=== PATIENT | female | born 1990 | race Caucasian/White ===

== ENCOUNTER → 2019-11-28 08:17 | Outpatient (CLI) | payer OTHER, SELFPAY ==
[2019-12-04 07:16] LABS: C.trachomatis RNA NOT DETECTED; N.gonorrhoeae RNA NOT DETECTED
== END ==
PROVIDERS: Family Provider Nurse Practitioner; PCP Nurse Practitioner; Visit Provider Obstetrics & Gynecology
DX: Z11.3 Encounter for screening for infections with a predominantly sexual mode of transmission (principal)
CPT/HCPCS: 87491; 87591

== ENCOUNTER → 2019-11-28 09:03 | Outpatient (CLI) | payer OTHER, SELFPAY ==
[2019-11-28 09:54] LABS: Add Manual Diff / Slide Review NO; Basophils Absolute Auto 0 /uL (0-100); Basophils Percent Auto 0.2 % (0-2); Eosinophils Absolute Auto 0 /uL (0-450); Eosinophils Percent Auto 0.6 % (2-4); Hemoglobin 13.2 g/dL (12.0-16.0); Lymphocytes Absolute Auto 1400 /uL (1100-4500); Lymphocytes Percent Auto 20.2 % (25-40); Mean Corpuscular HGB Conc 33.9 % (30-36); Mean Corpuscular Hemoglobin 28.7 PG (26-34); Mean Corpuscular Volume 84.5 fL (80-100); Monocytes Absolute Auto 300 /uL (0-900); Monocytes Percent Auto 3.8 % (3-14); Neutrophils Absolute Auto 5000 /uL (1500-7000); Neutrophils Percent Auto 75.2 % (50-75); Platelet Count 286 X10^3/uL (150-400); Red Blood Cell Count 4.61 X10^6/uL (4.0-5.2); Red Cell Distribution Width 13.6 % (11.6-14.8); White Blood Cell Count 6.7 X10^3/uL (4.5-11.0)
[2019-11-28 09:56] LABS: Appearance Urine UA CLEAR; Bilirubin Urine UA NEGATIVE (NEGATIVE); Color Urine UA YELLOW; Glucose Urine UA NEGATIVE (Negative); Ketones Urine UA NEGATIVE (NEGATIVE); Leukocyte Esterase Urine UA NEGATIVE (NEGATIVE); Nitrite Urine UA NEGATIVE (Negative); Occult Blood Urine UA NEGATIVE (Negative); Protein Urine UA NEGATIVE (Negative); Specific Gravity Urine UA 1.015 (1.000-1.035); Urobilinogen Urine UA 0.2 E.U./dL (0.2)
[2019-11-28 10:47] LABS: Hepatitis B Surface Antigen NEGATIVE s/c (NEGATIVE)
[2019-11-28 11:00] LABS: HIV 1 & 2 Ab/Ag 4th Gen Combo NEGATIVE (NEGATIVE); Hep C Virus Ab w/Reflex Quant NEGATIVE s/c (NEGATIVE)
[2019-11-30 19:41] LABS: RPR Screen Nonreactive (Nonreactive)
== END ==
PROVIDERS: Family Provider Nurse Practitioner; PCP Nurse Practitioner; Referring Provider Obstetrics & Gynecology; Visit Provider Obstetrics & Gynecology
DX: Z34.81 Encounter for supervision of other normal pregnancy, first trimester (principal)
CPT/HCPCS: 36415; 80055; 81003; 86787; 86803; 86850; 86900; 86901; 87086; 87389

== ENCOUNTER → 2020-02-06 09:56 | Outpatient (CLI) | payer OTHER, SELFPAY ==
--- NOTE | 2020-02-06 09:58 | DI.US.S_ITS ---
PROCEDURE: US OB >= 14 WEEKS FETUS INDICATIONS: ANATOMY OUTSIDE/PRIOR DATING DATA: Last menstrual period (LMP): 09/25/19. LMP-based estimated date of delivery (CORNELL): 07/01/20. First dating scan (date and location): 11/25/19, [facility]. Estimated date of delivery (CORNELL) from first dating scan: 07/02/20. TECHNIQUE: Real-time scanning was performed of the fetus, with image documentation and biometric measurements. COMPARISON: [facility], , OB >= 14 WEEKS FETUS, 11/28/2019, 8:22. FINDINGS: General: A single live intrauterine gestation is present. Presentation: Breech. Placenta: Placental position is posterior, without previa. Amniotic fluid index: 13.9 cm, normal range is 5-24 cm. heart rate: 140 beats per minute. Maternal cervical canal: 4.9 cm long. Normal lower limit is 2.5 cm. biometrics: Biparietal diameter: 4.5 cm equals 19 weeks 4 days Head circumference: 16.7 cm equals 19 weeks 2 days Abdominal circumference: 14.4 cm equals 19 weeks 6 days Femur length: 2.7 cm equals 18 weeks 3 days Estimated gestational age from initial scan: 19 weeks 0 days Composite gestational age from present scan: 19 weeks 2 days Estimated weight and percentile: 280 g, 50th percentile Measurement variability for biometric dating: +/- 7 days from 14 weeks to 15 weeks 6 days gestation, +/- 10 days from 16 weeks to 21 weeks 6 days gestation, +/- 2 weeks from 22 weeks to 27 weeks 6 days gestation, +/- 3 weeks for 28 weeks gestation or later. weight reference: 4500 g or EFW >90/95% is considered macrosomia or large for gestational age. EFW <10% is small for gestational age. EFW 5% or less is considered intra-uterine growth restriction. Anatomic survey: Neuro: Ventricles are non-dilated at less than 10 mm. Cisterna magna is normal at 3-11 mm. Cerebellum is normal in size and morphology. Nuchal skin fold: Normal at less than 6 mm between 14-21 weeks gestational age. Face: Nose and lips, facial profile are seen. Spine: No evidence for spina bifida. Heart: 4-chambered heart is present, with normal ventricular outflow tracts. Diaphragm: Diaphragm is intact. Stomach: Left-sided stomach is present. Kidneys: No hydronephrosis. Normal is less than 5 mm in 2nd trimester, less than 7 mm in 3rd trimester. Cord: 3-vessel cord has orthotopic insertion. Bladder: Normal in size. Extremities: All 4 extremities identified. IMPRESSION: A single live intrauterine is seen. No significant discrepancy is found between the estimated gestational age based on these images and the estimated gestational age based upon the given outside dating. The face, including the nose and lips and profile view are not seen. No anatomic abnormalities are identified. Dictated by: Georges Will M.D. on 02/06/2020 at 11:24 Approved by: Georges Will M.D. on 02/06/2020 at 11:27
== END ==
PROVIDERS: Family Provider Nurse Practitioner; PCP Nurse Practitioner Family; Referring Provider Obstetrics & Gynecology; Visit Provider Obstetrics & Gynecology
DX: Z34.92 Encounter for supervision of normal pregnancy, unspecified, second trimester (principal); Z3A.19 19 weeks gestation of pregnancy
CPT/HCPCS: 76811

== ENCOUNTER → 2020-04-15 07:55 | Outpatient (CLI) | payer OTHER, MEDICAID, SELFPAY ==
[2020-04-15 09:32] LABS: Hematocrit 35.6 % (36-46)
[2020-04-15 09:46] LABS: GTT (PREG) 1 Hour PP 50gm Dose 124 mg/dL (76-139)
== END ==
PROVIDERS: Family Provider Nurse Practitioner; PCP Nurse Practitioner Family; Referring Provider Obstetrics & Gynecology; Visit Provider Obstetrics & Gynecology
DX: Z34.82 Encounter for supervision of other normal pregnancy, second trimester (principal); Z3A.26 26 weeks gestation of pregnancy
CPT/HCPCS: 36415; 82950; 85014; 85018

== ENCOUNTER → 2020-05-28 10:00 | Outpatient (CLI) | payer OTHER, MEDICAID, SELFPAY ==
[2020-05-29 10:29] LABS: Strep Grp B PCR NEG for Grp B Strep
== END ==
PROVIDERS: Family Provider Nurse Practitioner; PCP Nurse Practitioner Family; Visit Provider Obstetrics & Gynecology
DX: Z34.83 Encounter for supervision of other normal pregnancy, third trimester (principal); Z3A.35 35 weeks gestation of pregnancy
CPT/HCPCS: 87653

== ENCOUNTER 2020-06-25 14:42 | Inpatient (IN) | payer OTHER, MEDICAID, SELFPAY ==
[2020-06-25 18:25] LABS: COVID19 -Nasal RAPID Negative (Negative)
[2020-06-25 18:29] LABS: Add Manual Diff / Slide Review NO; Basophils Absolute Auto 0 /uL (0-100); Basophils Percent Auto 0.5 % (0-2); Eosinophils Absolute Auto 0 /uL (0-450); Eosinophils Percent Auto 0.5 % (2-4); Hematocrit 37.1 % (36-46); Hemoglobin 12.5 g/dL (12.0-16.0); Lymphocytes Absolute Auto 1900 /uL (1100-4500); Lymphocytes Percent Auto 19.5 % (25-40); Mean Corpuscular HGB Conc 33.6 % (30-36); Mean Corpuscular Hemoglobin 27.8 PG (26-34); Mean Corpuscular Volume 82.7 fL (80-100); Monocytes Absolute Auto 500 /uL (0-900); Monocytes Percent Auto 5.5 % (3-14); Neutrophils Absolute Auto 7200 /uL (1500-7000); Platelet Count 338 X10^3/uL (150-400); Red Blood Cell Count 4.49 X10^6/uL (4.0-5.2); Red Cell Distribution Width 14.2 % (11.6-14.8); White Blood Cell Count 9.7 X10^3/uL (4.5-11.0)
[2020-06-25 18:40] VITALS: BP 125/78
[2020-06-26] MEDS: LACTATED RINGERS 1,000 ML 100 ML IV (11:16)
[2020-06-26] MEDS: OXYTOCIN PREMIX 30 UNIT/500 ML PLAST..BAG IV (11:16)
--- NOTE | 2020-06-26 14:24 | P.HPOB_ITS ---
OB HPI Date/Time Date of admission: 06/25/20 Date Patient Seen: 06/26/20 Time Patient Seen: 07:00 History of Present Condition Chief complaint: Induction of Labor : 3 Para: 2 Estimated Date of Delivery: 07/02/20 Estimated Gestational Age (weeks): 39+ 1 Narrative: Britta Garcia is a 29 year old female 3 para 2 at 39-,1/7 weeks gestation who presented with advanced cervical dilation and lives on [facility] Indications Indication for induction OB: maternal distance History of Present care: good care, initiated at week # (9), number of visits (10) and pounds weight gain (59) Dating criteria: LMP confirmed by 1st trimester US Ultrasounds: normal 1st trimester US and normal mid trimester US Obstetrical complications: none Medical complications: none Preadmission Labs Blood type: AB (+) positive -: Antibody screen: negative, GBS status: negative, HBsAG: negative, HIV: negative and RPR/VDLR: negative -: Chlamydia screen: not detected and Gonorrhea screen: not detected -: Rubella: immune and Varicella: immune HCAB: negative PAP: Normal Urine: Negative 1 hr GTT: 124 Prior (ies) History: Spontaneous vaginal delivery x2 Evaluation Evaluation Baseline heart rate: 140 Variability: Moderate (11-25) monitor accelerations: Present monitor decelerations: Absent Contraction Frequency (minutes): 5 Uterine Contraction Intensity: Mild Category of Tracing: Reactive Cervical dilation (cm): 5 Cervical effacement (%): 80 station: -1 Laboratory results: Laboratory Tests 06/25/20 06/25/20 06/25/20 17:30 18:10 18:10 WBC 9.7 RBC 4.49 Hgb 12.5 Hct 37.1 MCV 82.7 MCH 27.8 MCHC 33.6 RDW 14.2 Plt Count 338 Neut % (Auto) 74.0 Lymph % (Auto) 19.5 L [place] % (Auto) 5.5 Eos % (Auto) 0.5 L Baso % (Auto) 0.5 Neut # (Auto) 7200 H Lymph # (Auto) 1900 [place] # (Auto) 500 Eos # (Auto) 0 Baso # (Auto) 0 COVID-19 PCR Negative Blood Type AB Positive Antibody Screen Negative [facility] Medical History (Updated 08/19/20 @ 10:05 by Rosa Elena Valadez MD) Canker sores oral (Acute) Depression (Acute) Headache, migraine (Acute) Surgical History (Updated 11/27/19 @ 14:14 by Yoselin Hodges, RN) History of third molar tooth extraction (~2008) Family History (Updated 11/27/19 @ 14:38 by Yoselin Hodges, RN) Mother Depression Anxiety Skin cancer of face Hyperlipidemia Family/Other No problems noted. Grandmother Dementia Family/Other No problems noted. Father No problems noted. Grandfather Degenerative arthritis of hip Grandmother Breast cancer Grandfather Multiple sclerosis Lewy body dementia Social History marital status: details: Jaden Garcia number of children: 2 household members: spouse and children (Benito and Nadine) lives independently: Yes occupational status: unemployed current occupational exposures/hazards: No special puja needs: No Smoking Status: Never smoker Meds Home Medications and Allergies Home Medications Medication Instructions Recorded Confirmed Type prenat.vits,gloria,xvq-eofe-chwrw 1 tab PO DAILY 11/27/19 06/25/20 History Double Electric breast Pump and #1 each 06/06/20 06/25/20 Rx Supplies Allergies Allergy/AdvReac Type Severity Reaction Status Date / Time No Known Allergies Allergy Unknown Verified 06/25/20 18:43 [NO KNOWN ALLERGIES] Exam Vital Signs (past 8 hours): Generally: Patient tolerating contractions well, walking around in the room Lungs: Clear to auscultation bilaterally Cardiovascular: Regular rate and rhythm Fundal height: 39 cm Estimated weight: 8 lb Extremities: No edema, 1+ DTRs Objective Labs Result Diagrams: 06/25/20 18:10 Labs: Laboratory Results - last 24 hr 06/25/20 06/25/20 06/25/20 17:30 18:10 18:10 WBC 9.7 RBC 4.49 Hgb 12.5 Hct 37.1 MCV 82.7 MCH 27.8 MCHC 33.6 RDW 14.2 Plt Count 338 Neut % (Auto) 74.0 Lymph % (Auto) 19.5 L [place] % (Auto) 5.5 Eos % (Auto) 0.5 L Baso % (Auto) 0.5 Neut # (Auto) 7200 H Lymph # (Auto) 1900 [place] # (Auto) 500 Eos # (Auto) 0 Baso # (Auto) 0 COVID-19 PCR Negative Blood Type AB Positive Antibody Screen Negative Assessment and Plan Assessment and Plan Assessment and Plan narrative: Assessment: 29-year-old 3 para 2 at 39-,1/7 weeks gestation with advanced cervical dilation, lives in [facility] Plan: Pitocin per protocol 2 Artificial rupture of membranes performed with copious clear amniotic fluid Epidural as necessary Expected management to spontaneous vaginal delivery Time Spent with Patient Total time spent with greater than 50% in coordination of care (as documented) at patient's floor/unit and/or counseling patient:: 15-24 minutes
[2020-06-26] MEDS: IBUPROFEN 600 MG TABLET PO ×2 (17:00→23:04)
[2020-06-26] MEDS: DERMOPLAST SPRAY 20% 60 ML 1 SPRAY TOP (17:01)
--- NOTE | 2020-06-26 18:12 | PM.OBPRVD ---
Events: Labor Induction Labor & Delivery Delivery date: 06/26/20 Intrapartal events: Precipitous Labor < 3 hours Cervical ripening method: none Induction method: per pitocin protocol Delivery augmentation: rupture of membranes Delivery monitor: external FHT and external uterine Route of delivery: Episiotomy description: None L&D Laceration Description: None Estimated blood loss (mL): 150 Anesthesia type: None Complications: None Narrative: Patient complete and pushed for 3 minutes. At 3:36 p.m., a live male delivered spontaneously over an intact perineum in the VIRIDIANA presentation. Double nuchal cord, tight, cut on the perineum. The remainder of the body delivered without difficulty and was placed on mom's abdomen. The cord was double clamped and cut after it stopped pulsing. Cord bloods were obtained. The placenta delivered intact with a 3 vessel cord at 3:41 p.m.. The remainder of the Pitocin was given in the IV fluids. The fundus was massaged to firm. Perineum was inspected and there were no lacerations. Apgars 7 at 1 minute and 9 at 5 minutes. Estimated blood loss 150 cc. . No analgesia. Mom and stable to recovery. Baby 1: gender: Male Presentation: vertex Placenta delivery description: Spontaneous cord vessel description: Tight (X2) score (1 min): 7 score (5 min): 9 Plan for aftercare: To routine care
[2020-06-27] MEDS: IBUPROFEN 600 MG TABLET PO (05:12)
[2020-06-27 06:25] LABS: Hematocrit 33.7 % (36-46); Hemoglobin 11.2 g/dL (12.0-16.0)
[2020-06-27] MEDS: DOCUSATE 100 MG CAPSULE PO (09:19)
[2020-06-27] MEDS: PRENATAL VIT,CALC/IRON/FOLIC 1 TABLET 1 TAB PO (09:19)
--- NOTE | 2020-06-27 11:04 | PM.OBPN.1 ---
Subjective - OB Subjective Patient comments: no complaints and pain well controlled baby status: doing well and nursing well feeding status: exclusively breast feeding Date Patient Seen: 06/27/20 Time Patient Seen: 11:04 Interval history: Patient is a 29-year-old 3 para 3 post day # 1 status post spontaneous vaginal delivery. Patient doing very well. Bleeding tapering. Pain controlled with ibuprofen. going well. Exam Vital Signs (past 8 hours): Generally: Patient is sitting up in bed, no acute distress Lungs: Clear to auscultation bilaterally Cardiovascular: Regular rate and rhythm Fundus: Firm at U -1 Extremities: Negative Homans, no edema Objective Labs Result Diagrams: 06/27/20 06:10 Labs: Laboratory Results - last 24 hr 06/27/20 06:10 Hgb 11.2 L Hct 33.7 L Assessment & Plan Plan day: 1 plan OB: discharge home Comments: Follow-up in 6 weeks Time Spent With Patient Time: Total time spent is greater than 50% in coordination of care (as documented) at patient's floor/unit and/or counseling patient: Time with patient: 15-24 minutes
--- NOTE | 2020-06-27 11:06 | P.DS_ITS ---
Discharge Providers Provider Date of admission: 06/25/20 14:42 Discharge Date: 06/27/20 Primary care physician: IVON Wyatt Consults: 06/27/20 15:56 Consult to Java Groovy Developer Routine Comment: Discharge provider: Rosa Elena Valadez MD Summary Hospital Course Date Patient Seen: 06/27/20 Time Patient Seen: 11:06 Procedures: Pitocin induction of labor Artificial rupture of membranes Spontaneous vaginal delivery Hospital Course: Patient is a 29-year-old 3 para 3 who presented for an office visit on Tuesday and was found to be dilated 3 cm. She walked around for few hours and progressed to 5 cm. A decision was made to not let her go back to [place]. On June 26, 2020, Pitocin was started. Artificial rupture membranes was performed. She progressed rapidly to complete dilation. She had a spontaneous vaginal delivery without complication. Peripartum Data Delivery Method: Natural Vaginal Laceration Description: None Episiotomy description: None Procedures: Pitocin induction of labor Artificial rupture of membranes Spontaneous vaginal delivery complications: none Steele 1: Gender: Male Disposition of : home Status at Discharge Cognitive/behavioral status at discharge: oriented Functional status at discharge: independent ambulation Overall status at discharge: patient is progressing back to baseline Time Spent with Patient Time attestation: Total time spent providing and/or coordinating discharge services: Time spent: Less than 30 minutes Objective Labs Result Diagrams: 06/27/20 06:10 Labs: Laboratory Results - last 24 hr 06/27/20 06:10 Hgb 11.2 L Hct 33.7 L Discharge Plan Discharge Plan Patient Disposition: Home Discharge comment: Call with fever, chills, or bleeding vaginally more than a pad in an hour Discharge orders & Medications Prescriptions: Continued prenat.vits,gloria,iyz-[id number] Tablet 1 tab PO DAILY RF: 0 No Action (DME) Double Electric breast Pump and Supplies See Rx Instructions .ROUTE .MEDSUPPLY Qty: 1 RF: 0 Follow up/Referrals: Rosa Elena Valadez MD [Physician] - 6 Weeks Diet/Activity/Treatments Diet: Regular Activity: No intercourse Skin/Wound/Dressing Care Report to your healthcare provider any signs of infection, such as:: chills, fever, increased pain and unusual drainage Visit Report/Discharge Packet Instructions: DI for Labor and Delivery, Vaginal Discharge Data Primary Care Provider: Myriam Bonilla
[2020-06-27 15:34] VITALS: BP 121/81; PULSE 83; RESP 17; TEMP 36.6
== END 2020-06-27 16:53 | disposition home or self-care (01) | DRG 560 ==
PROVIDERS: Admitting Provider Obstetrics & Gynecology; Family Provider Nurse Practitioner; PCP Nurse Practitioner Family; Referring Provider Obstetrics & Gynecology; Visit Provider Obstetrics & Gynecology
DX: O62.3 Precipitate labor (principal); Z3A.39 39 weeks gestation of pregnancy; Z37.0 Single live birth; Z11.59 Encounter for screening for other viral diseases; O69.1XX0 Labor and delivery complicated by cord around neck, with compression, not applicable or unspecified
CPT/HCPCS: 36415; 59050; 59409; 85014; 85018; 85025; 86850; 86900; 86901; 87635; G0379; J2590

== ENCOUNTER → 2022-12-09 11:31 | Outpatient (CLI) | payer OTHER, SELFPAY ==
[2022-12-13 15:17] LABS: QuantiFERON Mitogen Value >10.00 IU/mL (.); QuantiFERON Nil Value 0.05 IU/mL (.); QuantiFERON TB Gold Plus Negative (Negative); QuantiFERON TB1 Ag Value 0.05 IU/mL (.); QuantiFERON TB2 Ag Value 0.07 IU/mL (.)
== END ==
PROVIDERS: Family Provider Nurse Practitioner; PCP Nurse Practitioner Family; Referring Provider Nurse Practitioner Family; Visit Provider Nurse Practitioner Family
DX: Z11.1 Encounter for screening for respiratory tuberculosis (principal)
CPT/HCPCS: 36415; 86480